=== PATIENT | male | born 1975 | race Caucasian/White ===

== ENCOUNTER 2022-03-05 12:46 | Emergency (ER) | payer SELFPAY ==
[2022-03-05 13:07] VITALS: BP 116/76; PULSE 80; TEMP 98.3; BMI 27.3
== END 2022-03-05 13:43 | disposition home or self-care (01) ==
LOC: JERFT 12:46
DX: H92.01 Otalgia, right ear (principal); H61.23 Impacted cerumen, bilateral
CPT/HCPCS: 99283-25